=== PATIENT | male | born 1990 | race American Indian/Alaskan Native ===

== ENCOUNTER 2021-03-04 06:21 | Day surgery (SDC) | payer BC ==
[2021-03-04 07:33] LABS: Basophils % (Auto) 0.8 % (0.0-1.8); Eosinophils # (Auto) 0.2 K/mm3 (0.0-0.4); Eosinophils % (Auto) 4.7 % (0.0-4.3); Hematocrit 41.7 % (35.5-45.6); Hemoglobin 14.4 gm/dl (11.8-15.2); Lymphocytes # (Auto) 1.5 K/mm3 (1.2-5.4); Mean Corpuscular HGB Conc 35 % (32-34); Mean Corpuscular Volume 84 fl (84-94); Monocytes # (Auto) 0.4 K/mm3 (0.0-0.8); Monocytes % (Auto) 9.3 % (0.0-7.3); Platelet Count 209 K/mm3 (140-440); Red Blood Count 4.94 M/mm3 (3.65-5.03); Red Cell Distribution Width 13.9 % (13.2-15.2)
[2021-03-04 07:42] LABS: INR 0.98 (0.87-1.13)
[2021-03-04 07:51] LABS: BUN/Creatinine Ratio 16; Blood Urea Nitrogen 14 mg/dL (9-20); Calcium 10.1 mg/dL (8.4-10.2); Hemolysis Index 18
[2021-03-04] MEDS ORDERED: HEPARIN/NS 5000 UNIT/500ML 1,000 ML IR ONE (07:51)
[2021-03-04] MEDS ORDERED: ASPIRIN EC 325 MG TAB PO SCH (08:00)
[2021-03-04] MEDS ORDERED: SODIUM CHLORIDE 0.9% 500 ML 500 ML IV SCH (08:00)
[2021-03-04] MEDS: NITROGLYCERIN SYRINGE 3 ML ONE ×2 (09:16→10:21)
[2021-03-04] MEDS: fentaNYL 100 MCG/2 ML INJ ONE ×2 (09:18→10:16)
[2021-03-04] MEDS: MIDAZOLAM 2 MG/2 ML INJ ONE ×2 (09:18→10:16)
[2021-03-04] MEDS: LIDOCAINE (2%) 20 MG/1 ML VIAL 20 ML MDV INFILTRATI ONE ×2 (09:19→10:20)
[2021-03-04] MEDS: VERAPAMIL 5 MG/2 ML INJ ONE ×2 (09:20→10:21)
[2021-03-04] MEDS: HEPARIN 10,000 UNITS/10 ML VIAL ONE ×2 (09:21→10:21)
--- NOTE | 2021-03-04 10:54 | Discharge Summary ---
Short Stay Discharge Plan Activity: advance as tolerated Weight Bearing Status: Full Weight Bearing Diet: low fat, low cholesterol, low salt Wound: keep clean and dry Special Instructions: no heavy lifting (3 days) Follow up with: JEF JURADO MD [Primary Care Provider] - 7 Days
[2021-03-04] MEDS ORDERED: SODIUM CHLORIDE 0.9% 1000 ML 1,000 ML IV SCH (11:00)
[2021-03-04] MEDS ORDERED: traMADol 50 MG TAB PO PRN (11:30)
[2021-03-04] MEDS ORDERED: HYDROcodone/ACETAMINOPHEN 5-325 MG TAB PO PRN (11:30)
--- NOTE | 2021-03-04 12:25 | Cardiac Catherization Report ---
DATE OF SERVICE: 03/04/2021 CARDIAC CATHETERIZATION REPORT REASON FOR PROCEDURE: Chest pain and abnormal thallium stress test. PROCEDURES PERFORMED: 1. Left heart catheterization. 2. Selective left and right coronary angiography. 3. Left ventricular angiography. 4. Sedation time, start 10:16, end 10:36. DESCRIPTION OF PROCEDURE: The patient was prepped and draped in a sterile fashion after informed consent. The right radial cath site was prepped and draped after negative Chcae's test. The right radial artery was entered using the Seldinger technique followed by placement of a 6-Uzbek hydrophilic sheath. Routine radial cocktail was administered via the sheath. Selective left and right coronary angiography was performed using a #3.5 left Kristina and then a #4 right Kristina. The pigtail catheter was used for left ventricular angiography. The catheters were removed, sheath removed, and hemostasis achieved using a TR band. The patient was returned to the postprocedure unit in stable condition. There were no complications. FINDINGS: HEMODYNAMICS: Left ventricular end-diastolic pressure was 25-30, following coronary angiography. Ascending aortic pressure was 147/92. There was no significant pressure gradient on pullback across the aortic valve. CORONARY ANGIOGRAPHY: The left main coronary artery was angiographically normal. The left anterior descending artery and its diagonal branches were angiographically normal. The circumflex artery and its obtuse marginal branches were angiographically normal. The right coronary artery was dominant and similarly angiographically normal. There was normal left ventricular systolic function, ejection fraction 60%. CONCLUSION: 1. Angiographically normal coronary arteries. 2. Normal left ventricular systolic function, ejection fraction 60%. RECOMMENDATIONS: Risk factor modification and medical therapy. TID: [id number] RECEIPT: [id number] CA/VIS
[2021-03-04 14:24] VITALS: BP 130/85
--- NOTE | 2021-03-05 13:28 | Electrocardiograph Report ---
[facility] Test Date: 2021-03-04 Test Time: 07:58:34 Pat Name: AVE PIPER Department: Room: Gender: M Director Of Archives: FREDDIE : 1990 Requested By: OLEG SALGUERO Order Number: [id number] Reading MD: Oleg Salguero Measurements Intervals [place] Rate: 53 P: 37 UT: 164 QRS: 1 QRSD: 98 T: 1 QT: 424 QTc: 399 Interpretive Statements Sinus bradycardia Otherwise normal ECG No previous ECG available for comparison Electronically Signed On 03-05-2021 13:28:14 EDT by Oleg Salguero
== END 2021-03-04 15:30 | disposition home or self-care (01) ==
LOC: CATHLABREC 06:21
PROVIDERS: ATTEND Internal Medicine Cardiovascular Disease
DX: R94.30 Abnormal result of cardiovascular function study, unspecified (principal); J45.909 Unspecified asthma, uncomplicated; Z87.891 Personal history of nicotine dependence; Z79.899 Other long term (current) drug therapy; Z98.890 Other specified postprocedural states
CPT/HCPCS: 36415; 80048; 85025; 85610; 85730; 93005; 93458; 99156; C1894; J1644; J2250; J3010; J7040; Q9967